=== PATIENT | male | born 1980 | race Caucasian/White ===

== ENCOUNTER 2025-03-03 02:17 | Observation (INO) | payer OTHER ==
[2025-03-03] MEDS ORDERED: Heparin 10,000 UNITS/ 10 ML VIAL ONE (02:25)
[2025-03-03] MEDS ORDERED: PHENYLEPHRINE-NS 100 MCG/ML 10 ML SYRINGE ONE (02:25)
[2025-03-03] MEDS ORDERED: Lidocaine 1% (PF) 30 ML VIAL ONE (02:25)
[2025-03-03] MEDS ORDERED: Nitroglycerin 50 MG/250 ML BOT 0 ML ONE (02:26)
[2025-03-03 05:33] LABS: Troponin I Less than 0.010 ng/mL (< 0.028)
[2025-03-03] MEDS ORDERED: Acetaminophen 325 MG TAB PO PRN (06:23)
[2025-03-03] MEDS ORDERED: Ondansetron PF 4 MG/2 ML Vial IVP PRN (06:23)
[2025-03-03] MEDS ORDERED: Calcium Carbonate 500 MG ChewTAB PO PRN (06:23)
[2025-03-03] MEDS: Pantoprazole 40 MG VIAL IVP SCH (09:31)
[2025-03-03] MEDS: Aspirin Chewable 81 MG TAB PO SCH (09:31)
[2025-03-03 09:41] VITALS: BMI 28.8
[2025-03-03 10:39] LABS: #Basophils 0.04 10x3/uL (0.0-0.2); #Eosinophils 0.03 10x3/uL (0.0-0.7); #Monocytes 0.66 10x3/uL (0.11-0.59); #Neutrophils 7.41 10x3/uL (1.40-6.50); %Basophils 0.4 % (0.0-1.0); %Eosinophils 0.3 % (0.0-10.0); %Lymphocytes 18.7 % (21.0-51.0); %Monocytes 6.6 % (0.0-10.0); %Neutrophils 73.6 % (42.0-75.0); Hematocrit 48.1 % (42.0-52.0); Hemoglobin 16.6 g/dL (14.0-18.0); Mean Corpuscular Hemoglobin 30.3 pg (27.0-31.0); Mean Corpuscular Volume 87.9 fL (78.0-98.0); Platelet Count 277 10x3/uL (130-400); Red Blood Cell (RBC) Count 5.47 mill/uL (4.70-6.10); White Blood Cell (WBC) Count 10.06 10x3/uL (4.8-10.8)
[2025-03-03 11:02] LABS: ALT (SGPT) 22 U/L (Less than 45); AST (SGOT) 19 U/L (11-34); Albumin 4.0 g/dL (3.1-4.5); Alkaline Phosphatase 62 U/L (40-110); Anion Gap 12 mmol/L (10-20); BUN (Urea Nitrogen) 8 mg/dL (8.9-20.6); Bilirubin, Total 1.2 mg/dL (0.3-1.2); Calc. Creatinine Clearance 180 mL/min (70-130); Calcium 9.1 mg/dL (7.8-10.44); Carbon Dioxide 23 mmol/L (22-29); Chloride 108 mmol/L (98-107); Globulin 2.6 g/dL (2.4-3.5); Glucose 102 mg/dL (70-105); Potassium 4.1 mmol/L (3.5-5.1); Sodium 139 mmol/L (136-145)
[2025-03-03 11:21] LABS: Troponin I Less than 0.010 ng/mL (< 0.028)
[2025-03-03 15:13] LABS: Troponin I Less than 0.010 ng/mL (< 0.028)
[2025-03-03 17:28] VITALS: BP 124/81; TEMP 98.5
[2025-03-04] MEDS ORDERED: Pantoprazole 40 MG DR.TAB PO SCH (09:00)
== END 2025-03-03 18:15 | disposition home or self-care (01) ==
LOC: ERS 02:17 → OBS 06:21
PROVIDERS: ADMIT Student in an Organized Health Care Education/Training Program; ATTEND Student in an Organized Health Care Education/Training Program
DX: R07.2 Precordial pain (principal); I10 Essential (primary) hypertension; F17.210 Nicotine dependence, cigarettes, uncomplicated
CPT/HCPCS: 36415; 78452; 93005; 93017; 96365; 96375; A9502; G0378; J0461; J1644; J2470; J2785